=== PATIENT | female | born 1955 | race Hispanic/Latino ===

== ENCOUNTER 2022-04-28 09:35 | Outpatient (CLI) | payer MEDICARE, OTHER ==
[2022-04-28 10:48] LABS: Calcium 10.2 mg/dL (8.4-10.2)
[2022-04-28 11:11] LABS: Hematocrit 36.2 % (30.3-42.9); Hemoglobin 12.6 gm/dl (10.1-14.3); Mean Corpuscular HGB Conc 35 % (30-34); Mean Corpuscular Volume 90 fl (79-97); Platelet Count 268 K/mm3 (140-440); Red Blood Count 4.02 M/mm3 (3.65-5.03); Red Cell Distribution Width 12.8 % (13.2-15.2)
[2022-04-28 11:26] LABS: Erythrocyte Sedimentation Rate 13 mm/Hr (0-20)
[2022-05-03 15:45] LABS: Vitamin D, 25-OH, D2 5 ng/mL
[2022-05-04 06:55] LABS: ANA Screen, IFA Negative (Negative)
== END 2022-04-28 09:36 | disposition home or self-care (01) ==
LOC: LAB 09:35
PROVIDERS: ATTEND Specialist
DX: G61.9 Inflammatory polyneuropathy, unspecified (principal); E07.9 Disorder of thyroid, unspecified
CPT/HCPCS: 36415; 80053; 82306; 82607; 83921; 84443; 85027; 85652; 86038; 86225; 86431; 86592